=== PATIENT | female | born 1980 ===

== ENCOUNTER 2017-09-06 12:11 | Emergency (ER) | payer OTHER ==
[~2017-09-06] VITALS: Ht 167.6 cm; Wt 75.0 kg
[2017-09-06 12:12] VITALS: BP 136/83; PULSE 73; RESP 16; TEMP 97.6; O2SAT 100
[2017-09-06] MEDS ORDERED: IBUPROFEN 800 MG TAB PO ONE (12:45)
--- NOTE | 2017-09-06 13:31 | RADRPT ---
EXAM DATE: 09/06/2017 1:22 PM EDT AGE/SEX: 37 years / Female INDICATIONS: Fell on the 5th floor here while working today. CLINICAL DATA: This is the patient's initial encounter. Patient reports that signs and symptoms have been present for 1 day and indicates a pain score of 4/10. MEDICAL/SURGICAL HISTORY: None. None. COMPARISON: No prior exams available for comparison. FINDINGS: Bony structures are intact and in normal alignment. Joints are intact without dislocation or signifi cant arthropathy. Osseous density is normal. Soft tissues are unremarkable. No radiopaque foreign bodies seen. CONCLUSION: No acute findings. Electronically signed by: Evangelist Eugene MD 09/06/2017 1:30 PM EDT
[2017-09-06] MEDS ORDERED: IBUP1TAB7 PO (13:37)
[2017-09-06] MEDS ORDERED: ROBA500T PO (13:37)
--- NOTE | 2017-09-06 13:39 | PD ---
HPI Chief Complaint: Injury Time Seen by Provider: 12:33 Travel History International Travel<30 days: No Contact w/Intl Traveler<30days: No Traveled to known affect area: No History of Present Illness HPI 37-year-old female, [employer] employee, presents to the emergency department with complaint of left knee pain after tripping over which she thinks was the crash cart lock on the floor and falling during a code in [facility] today. She denies hitting her head or loss of consciousness. Denies neck pain. Said she had a brief moment of lower back pain, but it is better now. Denies encopresis, incontinence, saddle anesthesias. He denies chest pain, shortness of breath, abdominal pain, nausea, vomiting. Denies paresthesias, loss of sensation, decreased range of motion to the affected extremity. Has not been ambulatory on the affected extremity since the fall. Has not taken any medications or try any treatments to alleviate her symptoms. Knee pain is aggravated with palpation and flexion. Pain is to the lateral aspect. Rates pain 4/10. Better at rest. Does not know the name of her primary care provider. Denies significant past medical history. No known allergies. Has no other medical complaints. No other modifying factors or associated signs and symptoms. PFSH Past Medical History ?: Not Social History Tobacco Use: No Allergies-Medications (Allergen,Severity, Reaction): Coded Allergies: No Known Allergies (Unverified , 09/06/17) Reported Meds & Prescriptions Reported Meds & Active Scripts Active Robaxin (Methocarbamol) 500 Mg Tab 500 Mg PO QID PRN Ibuprofen 800 Mg Tab 800 Mg PO Q6HR PRN Review of Systems Except as stated in HPI: all other systems reviewed are Neg Physical Exam Narrative GENERAL: Well-nourished, well-developed female patient, in no acute distress; afebrile, nontoxic-appearing SKIN: Warm and dry. HEAD: Atraumatic. Normocephalic. EYES: Pupils equal and round. No scleral icterus. No injection or drainage. ENT: Mucosa pink and moist. Airway patent. NECK: Trachea midline. CARDIOVASCULAR: Regular rate. RESPIRATORY: No accessory muscle use. GASTROINTESTINAL: Flat. MUSCULOSKELETAL: Left knee nonedematous, nonerythematous, and without ecchymosis ; full range of motion and flexion to 90; point tenderness to the lateral aspect; joint stable with negative drawer test; no obvious deformity. Left lower extremity is supple and non-tense with 2+ pedal pulse and sensory intact and without erythema or edema. BACK: No midline point tenderness on palpation of the lumbar spine. No reproducible tenderness on palpation to the paraspinal or iliosacral region of the lower back. NEUROLOGICAL: Awake and alert. Oriented 3. No obvious cranial nerve deficits. Motor grossly within normal limits. Normal speech. PSYCHIATRIC: Appropriate mood and affect; insight and judgment normal. Data Data Last Documented VS Vital Signs Date Time Temp Pulse Resp B/P (MAP) Pulse Ox O2 Delivery O2 Flow Rate FiO2 09/06/17 12:12 97.6 73 16 136/83 (100) 100 Orders Orders Knee, Complete (4vws) (09/06/17 12:43) Ice/Cold Pack (09/06/17 12:43) Ibuprofen (Motrin) (09/06/17 12:45) Crutches (09/06/17 13:39) Splint Or Brace Apply/Monitor (09/06/17 13:39) Ed Discharge Order (09/06/17 13:39) [facility] Medical Decision Making Medical Screen Exam Complete: Yes Emergency Medical Condition: Yes Medical Record Reviewed: Yes Differential Diagnosis Knee sprain, knee fracture, knee injury, low back strain, fall Narrative Course 37-year-old female, [employer] employee, with left knee injury and low back strain after mechanical slip and fall today. Denies hitting her head or loss of consciousness. Denies neck pain. Denies back pain at this time. Denies encopresis, incontinence, saddle anesthesias. Ibuprofen and left knee x-ray ordered. 1338: Left knee x-ray concluded: Knee X-Ray 09/06/17 1243 Signed Impressions: CONCLUSION: No acute findings. Discussed x-ray findings with the patient. I discussed canvas knee splint for support and the patient would like to get her own knee splint; I offered to give her 1 to take home and she declined. Cam bandage, crutches provided for support. Instructed patient to follow-up outpatient if symptoms persist. Instructed patient to follow-up with [facility]. Ibuprofen and Robaxin prescribed for home. Instructed patient to follow up with primary care provider. Patient verbalizes understanding and agreement with treatment plan. Patient is medically cleared and stable for discharge. Discussed reasons to return to the emergency department. Patient agrees with treatment plan. The patients vital signs are stable and the patient is stable for outpatient follow- up and treatment. Patient discharged home, stable and in no acute distress. Diagnosis Primary Impression: Fall Qualified Codes: W19.XXXA - Unspecified fall, initial encounter Additional Impressions: Left knee injury Qualified Codes: S89.92XA - Unspecified injury of left lower leg, initial encounter Strain of muscle, fascia and tendon of lower back, initial encounter Referrals: Primary Care Physician Patient Instructions: Acute Low Back Pain (ED), Crutch Instructions (ED), General Instructions, Knee Sprain (ED), Low Back Strain (ED) Additional Instructions: Knee: Tylenol or ibuprofen as needed and as directed to reduce pain and inflammation Rest, ice, compress, and elevate extremity to decrease pain and inflammation Knee brace for support Crutches for support Avoid aggravating activity; increase activity as tolerated Follow-up with primary care provider Follow-up with orthopedics Return to the emergency department immediately with worsening symptoms Low Back: Tylenol or ibuprofen as directed and as needed for pain Robaxin as prescribed and as needed for muscle spasms Heating pad and/or ice to affected area to reduce pain Avoid aggravating activities; increase activity as tolerated Follow-up with primary care provider Return to emergency department immediately with worsening of symptoms Med/Other Pt SpecificInfo: Prescription(s) given Scripts Methocarbamol (Robaxin) 500 Mg Tab 500 MG PO QID Y for MUSCLE SPASM, #30 TAB 0 Refills Prov: Valerie Campo 09/06/17 Ibuprofen (Ibuprofen) 800 Mg Tab 800 MG PO Q6HR Y for PAIN, #30 TAB 0 Refills Prov: Valerie Campo 09/06/17 Disposition: 01 DISCHARGE HOME Condition: Stable Valerie Campo Sep 06, 2017 13:39
== END 2017-09-06 14:25 | disposition home or self-care (01) ==
LOC: NEPK 12:11
DX: S89.92XA Unspecified injury of left lower leg, initial encounter (principal); S39.012A Strain of muscle, fascia and tendon of lower back, initial encounter; W01.0XXA Fall on same level from slipping, tripping and stumbling without subsequent striking against object, initial encounter; Y93.F9 Activity, other caregiving; Y92.239 Unspecified place in hospital as the place of occurrence of the external cause; Y99.0 Civilian activity done for income or pay
CPT/HCPCS: 73564; 99283; E0113